=== PATIENT | female | born 1985 | race Caucasian/White ===

== ENCOUNTER 2017-12-01 07:34 | Emergency (ER) | payer BC ==
[~2017-12-01] VITALS: Ht 160 cm; Wt 75.0 kg
[2017-12-01 07:37] VITALS: BP 147/86; PULSE 118; RESP 18; TEMP 98.1; O2SAT 96
[2017-12-01] MEDS ORDERED: ONDANSETRON ODT 4 MG TAB PO ONE (08:00)
--- NOTE | 2017-12-01 08:03 | PD ---
HPI Chief Complaint: Cold / Flu Symptoms Time Seen by Provider: 07:51 Travel History International Travel<30 days: No Contact w/Intl Traveler<30days: No Traveled to known affect area: No History of Present Illness HPI 32 y/o female presents with cough and congestion and sinus pressure since Monday when she went to a wedding on Monday. She denies any specific sick contacts. 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 She is 16 weeks . She states she also started vomiting and has had multiple episodes of nonbloody emesis. She denies any abdominal pain, diarrhea, vaginal bleeding, fever or other concurrent complaints at this time. She states she feels worse when she moves around. Quality is nonproductive. Severity is multiple episodes. Duration is since Monday. PFSH Past Medical History Medical History: Denies Significant Hx Diminished Hearing: No Tetanus Vaccination: > 5 Years Influenza Vaccination: No ?: LMP: AUG 2017 Past Surgical History Other Surgery: Yes (BREAST AUGMENTATION) Social History Alcohol Use: No Tobacco Use: No Substance Use: No Allergies-Medications (Allergen,Severity, Reaction): Coded Allergies: Tetracyclines (Verified Allergy, Unknown, RASH, 12/01/17) sulfamethoxazole (Verified Allergy, Unknown, Rash, 12/01/17) trimethoprim (Verified Allergy, Unknown, Rash, 12/01/17) Reported Meds & Prescriptions Reported Meds & Active Scripts Active Macrobid (Nitrofurantoin Monohydrate Macrocrystals) 100 Mg Capsule 100 Mg PO BID 7 Days Zofran Odt (Ondansetron Odt) 4 Mg Tab 4 Mg SL Q8HR PRN Review of Systems Except as stated in HPI: all other systems reviewed are Neg Physical Exam Narrative GENERAL: 32-year-old female in no apparent distress SKIN: Focused skin assessment warm/dry. HEAD: Atraumatic. Normocephalic. EYES: Pupils equal and round. No scleral icterus. No injection or drainage. ENT: No nasal bleeding or discharge. Mucous membranes pink and moist. Posterior oropharynx without exudate or erythema, bilateral TMs clear NECK: Trachea midline. No meningeal signs CARDIOVASCULAR: Regular rate and rhythm. RESPIRATORY: No accessory muscle use. Clear to auscultation. Breath sounds equal bilaterally. GASTROINTESTINAL: Abdomen soft, non-tender, nondistended. MUSCULOSKELETAL: No obvious deformities. No clubbing. No cyanosis. No edema. NEUROLOGICAL: Awake and alert. No obvious cranial nerve deficits. Motor grossly within normal limits. Normal speech. PSYCHIATRIC: Appropriate mood and affect; insight and judgment normal. Data Data Last Documented VS Vital Signs Date Time Temp Pulse Resp B/P (MAP) Pulse Ox O2 Delivery O2 Flow Rate FiO2 12/01/17 09:08 97 20 98 Room Air 12/01/17 07:37 98.1 147/86 (106) Orders Orders Urinalysis - C+S If Indicated (12/01/17 07:54) Influenzae A/B Antigen (12/01/17 07:54) Ondansetron Odt (Zofran Odt) (12/01/17 08:00) Heart Tones (12/01/17 07:55) Urine Culture (12/01/17 08:05) Oral Rehydration (12/01/17 08:47) Nitrofurantoin Monohyd Macrocr (Macrobid (12/01/17 09:00) Ed Discharge Order (12/01/17 09:53) Labs Laboratory Tests Test 12/01/17 08:05 Urine Color YELLOW Urine Turbidity CLOUDY Urine pH 6.0 Urine Specific [place] 1.020 Urine Protein 100 mg/dL Urine Glucose (UA) NEG mg/dL Urine Ketones 40 mg/dL Urine Occult Blood NEG Urine Nitrite NEG Urine Bilirubin NEG Urine Urobilinogen 2.0 MG/DL Urine Leukocyte Esterase MOD Urine RBC 2 /hpf Urine WBC 13 /hpf Urine Squamous Epithelial Cells 26 /hpf Urine Bacteria MANY /hpf Urine Hyaline Casts 8 /lpf Urine Mucus FEW /lpf Microscopic Urinalysis Comment CULTURE INDICATED MDM Medical Decision Making Medical Screen Exam Complete: Yes Emergency Medical Condition: Yes Medical Record Reviewed: Yes (Past history confirmed) Interpretation(s) flu is negative ua with signs of infection heart tones normal Differential Diagnosis URI, gastroenteritis, doubt pneumonia Narrative Course Will check influenza, urinalysis and dose with Zofran and reevaluate. Heart rate before treatment while I was in room was 107. Patient agrees to plan, she will need to tolerate oral hydration and have heart rate continued to improve before discharge Urine shows signs of infection. Will give Macrobid and make sure he can tolerate oral hydration. No emesis here Patient denies any new complaints and states that they are feeling better. Patient happy with care, all questions answered. Patient knows that follow up is incumbent on them and to return to the emergency room immediately if new or worsening symptoms develop. Patient given strict return precautions, vitals reviewed and are normal, agrees to further workup as an outpatient. Diagnosis Primary Impression: Vomiting Qualified Codes: R11.2 - Nausea with vomiting, unspecified Additional Impressions: Upper respiratory infection Qualified Codes: J06.9 - Acute upper respiratory infection, unspecified UTI (urinary tract infection) Qualified Codes: N39.0 - Urinary tract infection, site not specified Qualified Codes: Z3A.16 - 16 weeks gestation of Patient Instructions: General Instructions Additional Instructions: return as needed, follow with an manager regional Monday, Zofran as needed, keep hydrated Med/Other Pt SpecificInfo: Prescription(s) given Scripts Nitrofurantoin Monohydrate Macrocrystals (Macrobid) 100 Mg Capsule 100 MG PO BID for Infection for 7 Days, #14 CAP 0 Refills Prov: Darline Lo MD 12/01/17 Ondansetron Odt (Zofran Odt) 4 Mg Tab 4 MG SL Q8HR Y for Nausea/Vomiting, #10 TAB 0 Refills Prov: Darline Lo MD 12/01/17 Disposition: 01 DISCHARGE HOME Condition: Stable Darline Lo MD Dec 01, 2017 08:03
[2017-12-01 08:34] LABS: BACTERIA, URINE MANY /hpf; BILIRUBIN, URINE NEG (NEG); BLOOD, URINE NEG (NEG); GLUCOSE,URINE NEG (NEG); HYALINE CAST, URINE 8 /lpf (RARE); KETONE, URINE 40 mg/dL (NEG); MUCUS URINE FEW /lpf (OCC); NITRITE,URINE NEG (NEG); SQUAMOUS EPITHELIAL CELL URINE 26 /hpf (0-5); URINE COLOR YELLOW (YELLW/STRAW); URINE LEUKOCYTE ESTERASE MOD (NEG)
[2017-12-01] MEDS ORDERED: NITROFURANTOIN MONOHYD MACROCR 100 MG CAP PO ONE (09:00)
[2017-12-01 09:08] VITALS: PULSE 97; RESP 20; O2SAT 98
[2017-12-01] MEDS ORDERED: ZOFR4TAB3 SL (09:25)
[2017-12-01] MEDS ORDERED: MACR100C2 PO (09:32)
== END 2017-12-01 10:01 | disposition home or self-care (01) ==
LOC: NEPE 07:34
DX: O21.9 Vomiting of pregnancy, unspecified (principal); O23.42 Unspecified infection of urinary tract in pregnancy, second trimester; O99.512 Diseases of the respiratory system complicating pregnancy, second trimester; J06.9 Acute upper respiratory infection, unspecified; Z3A.16 16 weeks gestation of pregnancy
CPT/HCPCS: 81001; 86403; 87086; 87804; 99283

== ENCOUNTER 2018-04-17 17:29 | Inpatient (IN) ==
[2018-04-17] MEDS ORDERED: fentaNYL Citrate Inj 100 MCG/2 ML Ampul IV.PUSH PRN ×2 (17:35)
[2018-04-17] MEDS ORDERED: Sodium Chlor 0.9% Inj 500 ML IV.SIG PRN (17:35)
[2018-04-17] MEDS ORDERED: Naloxone Inj 0.4 MG/ML Vial IV.PUSH PRN (17:35)
[2018-04-17] MEDS ORDERED: Oxytocin 30 Units/500ml Premix 30 UNITS/500 ML BAG IV.SIG ONE (17:35)
--- NOTE | 2018-04-17 17:39 | P.HPOB ---
History of Present Illness Primary Care Physician: No Primary Care Physician History of Present Illness: HPI: 32 year-old with JESSE of 05/09/18, therefore at 35 weeks + 6 days EGA. Admitted to L&D today for preeclampsia without severe features. Was seen in the office today by Dr. Mix was found to have elevated blood pressures of 140/92 and 150/96. She is admitted for induction of labor. She denies any contractions. Denies any + SROM of clear fluid. Denies any vaginal bleeding. Patient has felt movements. care: Seen by Dr. Perales. Patient has Gestational diabetes. GBS negative. Allergies: Tetracycline/Bactrim (hives) Meds: vitamins. Social history: No tobacco, alcohol or drug abuse. - Inpatient Certification I certify that the inpatient services were ordered in accordance with Medicare regulations governing the order. This includes certification that hospital inpatient services are reasonable and necessary and in the case of services not specified as inpatient-only under 42 CFR 419.22(n), that they are appropriately provided as inpatient services in accordance to with the 2-midnight benchmark under 43 CFR 412.3(e) Medications and Allergies Allergies Allergy/AdvReac Type Severity Reaction Status Date / Time sulfamethoxazole Allergy Unknown Rash Verified 04/12/18 14:05 Tetracyclines Allergy Unknown RASH Verified 04/12/18 14:05 trimethoprim Allergy Unknown Rash Verified 04/12/18 14:05 Exam Narrative: CERVICAL EXAM Per Nursing: Cervix: anterior Dilatation: 2 Effacement: 90 Station: -1 Presentation: cephalic Membranes: intact Caprini VTE Risk Assessment Caprini VTE Risk Assessment: No/Low Risk (score <= 1) Caprini Risk Assessment Model: Point Value = 1 Point Value = 2 Point Value = 3 Point Value = 5 Age 41-60 Minor surgery BMI > 25 kg/m2 Swollen legs Varicose veins or History of unexplained or recurrent spontaneous Oral contraceptives or hormone replacement Sepsis (< 1 month) Serious lung disease, including pneumonia (< 1 month) Abnormal pulmonary function Acute myocardial infarction Congestive heart failure (< 1 month) History of inflammatory bowel disease Medical patient at bed rest Age 61-74 Arthroscopic surgery Major open surgery (> 45 min) Laparoscopic surgery (> 45 min) Malignancy Confined to bed (> 72 hours) Immobilizing plaster cast Central venous access Age >= 75 History of VTE Family history of VTE Factor V Leiden Prothrombin [id number] Lupus anticoagulant Anticardiolipin antibodies Elevated serum homocysteine Heparin-induced thrombocytopenia Other congenital or acquired thrombophilia Stroke (< 1 month) Elective arthroplasty Hip, pelvis, or leg fracture Acute spinal cord injury (< 1 month) Prophylaxis Regimen: Total Risk Factor Score Risk Level Prophylaxis Regimen 0-1 Low Early ambulation 2 Moderate Order ONE of the following: *Sequential Compression Device (SCD) *Heparin 5000 units SQ BID 3-4 Higher Order ONE of the following medications: *Heparin 5000 units SQ TID *Enoxaparin/Lovenox 40 mg SQ daily (WT < 150 kg, CrCl > 30 mL/min) *Enoxaparin/Lovenox 30 mg SQ daily (WT < 150 kg, CrCl > 10-29 mL/min) *Enoxaparin/Lovenox 30 mg SQ BID (WT < 150 kg, CrCl > 30 mL/min) AND/OR *Sequential Compression Device (SCD) 5 or more Highest Order ONE of the following medications: *Heparin 5000 units SQ TID (Preferred with Epidurals) *Enoxaparin/Lovenox 40 mg SQ daily (WT < 150 kg, CrCl > 30 mL/min) *Enoxaparin/Lovenox 30 mg SQ daily (WT < 150 kg, CrCl > 10-29 mL/min) *Enoxaparin/Lovenox 30 mg SQ BID (WT < 150 kg, CrCl > 30 mL/min) AND *Sequential Compression Device (SCD) Assessment and Plan - Plan 32-year-old at 35 and 6 admitted to L&D due to preeclampsia without severe features. Admitted for induction of labor. Bishops Score: 10. Cytotec [place]/EFM -Continue to monitor vitals q4 -Breakfast in AM, clear liquids after Breakfast. -Accucheck in AM -Anticipate -Discussed with Dr. Perales.
[2018-04-17] MEDS ORDERED: Citric Acid/Sodium Citrate Liq 30 ML UDC PO SCH (17:45)
[2018-04-17] MEDS ORDERED: Sod Chloride 0.9% Inj 1,000 ML IV.CONT PRN (18:00)
[2018-04-17 18:29] LABS: Baso % (Auto) 0.3 % (0.0-2.0); Eos # (Auto) 0.1 th/mm3 (0.0-0.4); Eos % (Auto) 0.6 % (0.0-4.0); Hemoglobin 11.2 gm/dL (11.6-15.3); Lymph # (Auto) 2.2 th/mm3 (1.0-4.8); Mean Corpuscular HGB Conc 33.8 % (32.0-36.0); Mean Corpuscular Hemoglobin 28.6 pg (27.0-34.0); Mean Corpuscular Volume 84.4 fL (80.0-100.0); Mean Platelet Volume 7.8 fL (7.0-11.0); Mono % (Auto) 8.7 % (0.0-8.0); Neut # (Auto) 8.1 th/mm3 (1.8-7.7); Neut % (Auto) 71.4 % (16.0-70.0); Platelet Count 359 th/mm3 (150-450); Red Blood Count 3.91 mil/mm3 (4.00-5.30); Red Cell Distribution Width 13.3 % (11.6-17.2); White Blood Count 11.4 th/mm3 (4.0-11.0)
[2018-04-17 19:38] LABS: Bacteria,Urine Rare /hpf; Bilirubin,Urine Negative (Negative); Clarity,Urine Clear (Clear); Color,Urine Straw (Yellw/Straw); Glucose,Urine (UA) Negative (Negative); Leukocyte Esterase,Urine Negative (Negative); Mucus,Urine Few /lpf (Occasional); Nitrite,Urine Negative (Negative); Specific Gravity,Urine 1.005 (1.002-1.035); Squamous Epithelial Cell,Urine 1 /hpf (0-5)
[2018-04-17 19:42] LABS: Amphetamine Urine With Conf Neg (Neg); Benzodiazepine Urine With Conf Neg (Neg)
[2018-04-17] MEDS ORDERED: Oxytocin 30 Units/500ml Premix 30 UNITS/500 ML BAG IV.SIG PRN (21:44)
--- NOTE | 2018-04-18 08:21 | P.OBLABOR ---
Subjective Interval history: Did not sleep during night contractions getting painful Objective Vital Signs: Vital Signs - 8 hr 04/18/18 00:23 04/18/18 00:24 04/18/18 01:28 Temperature 98.0 F Pulse Rate 85 67 Respiratory Rate 16 16 Blood Pressure 135/82 124/60 04/18/18 02:30 04/18/18 03:37 04/18/18 04:45 Temperature 98.1 F 98.4 F Pulse Rate 69 80 63 Respiratory Rate 18 18 Blood Pressure 134/77 121/69 135/68 04/18/18 06:05 04/18/18 06:14 04/18/18 07:15 Temperature Pulse Rate 66 67 Respiratory Rate 18 18 Blood Pressure 135/78 119/81 04/18/18 07:40 Temperature 98.4 F Pulse Rate Respiratory Rate Blood Pressure Objective: 3/100%/0 arom scant clear fluid UCs wevery 2-3 and palpate moderate strip category one Patient Started Active Labor: No Medical Induction of Labor: Yes Artificial Rupture of Membrane: Yes Artificial ROM Date: 04/18/18 Artificial ROM Time: 08:20 Assessment and Plan - Plan 32-year-old at 35 and 6 admitted to L&D due to preeclampsia without severe features. Admitted for induction of labor. Bishops Score: 10. Cytotec [place]/EFM -Continue to monitor vitals q4 -Breakfast in AM, clear liquids after Breakfast. -Accucheck in AM -Anticipate -Discussed with Dr. Perales. 04/18/18 should progress to active labor and second stage today anticipate epidural prn (Blood pressures are good and no intervention needed)
[2018-04-18] MEDS ORDERED: fentaNYL 2MCG-Bupiv 0.125% Epi 150 ML EPIDURAL ONE (08:50)
[2018-04-18] MEDS ORDERED: Lidocaaine 1.5%/Epinephrine 1:200,000 PF Inj 5 ML Amp ONE (09:10)
[2018-04-18] MEDS ORDERED: Lidocaine PF 1% Inj 5 ML Vial ONE ×2 (09:11→09:20)
[2018-04-18] MEDS ORDERED: fentaNYL Citrate Inj 100 MCG/2 ML Ampul EPIDURAL ONE (10:17)
[2018-04-18] MEDS ORDERED: fentaNYL 2MCG-Bupiv 0.125% Epi 150 ML EPIDURAL PRN (10:17)
[2018-04-18] MEDS ORDERED: fentaNYL Citrate Inj 100 MCG/2 ML Ampul ONE (13:24)
[2018-04-18] MEDS ORDERED: Lidocaine PF 1.5% Inj 20 ML Ampule ONE (13:24)
[2018-04-18] MEDS ORDERED: Bisacodyl 10 MG Supp RECTAL PRN (16:00)
[2018-04-18] MEDS ORDERED: Diphtheria/Tetanus/Pertussis Vaccine Inj 0.5 ML Syringe IM ONE (16:00)
[2018-04-18] MEDS ORDERED: Measles/Mumps/Rubella Vaccine Inj 0.5 ML Vial SQ ONE (16:00)
[2018-04-18] MEDS ORDERED: Naloxone Inj 0.4 MG/ML Vial IV.PUSH PRN (16:00)
[2018-04-18] MEDS ORDERED: Oxytocin 30 Units/500ml Premix 30 UNITS/500 ML BAG IV.CONT PRN (16:00)
[2018-04-18] MEDS ORDERED: Benzocaine 20% Top Spray 60 ML Can TOPICAL PRN (16:00)
[2018-04-18] MEDS ORDERED: Witch Hazel 50%/Glyderin 12.5% 40 Pad Jar RECTAL PRN (16:00)
[2018-04-18] MEDS ORDERED: Zolpidem Tartrate 5 MG Tablet PO PRN (16:00)
--- NOTE | 2018-04-18 18:18 | P.OBDELI ---
Weeks Gestation: 36 Anesthesia: Epidural Episiotomy: none Vaginal Delivery: Normal Presentation: Occiput anterior Nuchal Cord: x1 Delayed Cord Clamping (45 sec): Yes Placenta: Spontaneous delivery, Intact, 3 vessel cord, Other (two lobes removed and identified) Laceration: 1 deg Repair: Chromic running Estimated blood loss (mL): 200 Infant: Female, Single Additional Information: 9 and 9 apgars 5 pound 6 ounces
[2018-04-18] MEDS: Acetaminophen 325 MG Tablet PO PRN (21:05)
[2018-04-18] MEDS: Senna/Docusate Sodium 8.6/50 MG Tablet PO SCH (21:05)
[2018-04-19] MEDS: Acetaminophen 325 MG Tablet PO PRN ×4 (05:53→21:27)
--- NOTE | 2018-04-19 08:06 | P.PNOB ---
Subjective Post day: 1 Interval history: no BROWNE , no BV, no CP Objective Vital Signs/I&O: Vital Signs 04/18/18 09:25 04/18/18 09:35 04/18/18 09:40 Temperature Pulse Rate 89 84 108 H Respiratory Rate 20 Blood Pressure 141/81 H 145/91 H 04/18/18 09:41 04/18/18 09:56 04/18/18 10:15 Temperature 98.9 F Pulse Rate 96 H 109 H 87 Respiratory Rate 20 Blood Pressure 144/76 H 135/70 126/70 04/18/18 10:20 04/18/18 10:25 04/18/18 10:35 Temperature Pulse Rate 89 92 H 100 H Respiratory Rate Blood Pressure 120/89 96/61 L 120/68 04/18/18 10:40 04/18/18 10:50 04/18/18 10:55 Temperature Pulse Rate 86 90 85 Respiratory Rate Blood Pressure 128/78 133/93 H 129/79 04/18/18 11:00 04/18/18 11:10 04/18/18 11:26 Temperature 99.0 F Pulse Rate 85 101 H Respiratory Rate 20 20 Blood Pressure 128/81 107/83 04/18/18 11:40 04/18/18 11:55 04/18/18 12:00 Temperature Pulse Rate 89 89 Respiratory Rate 20 Blood Pressure 127/92 H 115/67 04/18/18 12:26 04/18/18 12:55 04/18/18 13:30 Temperature 98.1 F Pulse Rate 96 H 121 H 104 H Respiratory Rate 20 20 Blood Pressure 115/69 145/87 H 148/98 H 04/18/18 13:40 04/18/18 14:00 04/18/18 14:12 Temperature Pulse Rate 109 H 109 H Respiratory Rate 20 Blood Pressure 132/90 97/77 L 04/18/18 14:28 04/18/18 14:50 04/18/18 15:30 Temperature 97.9 F Pulse Rate 109 H 114 H 124 H Respiratory Rate 20 20 Blood Pressure 121/68 117/65 137/85 04/18/18 16:00 04/18/18 16:05 04/18/18 16:31 Temperature Pulse Rate 107 H 99 H Respiratory Rate 18 Blood Pressure 135/76 138/77 04/18/18 17:01 04/18/18 17:05 04/18/18 17:17 Temperature Pulse Rate 85 93 H Respiratory Rate 18 18 Blood Pressure 128/77 137/85 04/18/18 17:43 04/18/18 17:50 04/18/18 18:35 Temperature 98.5 F Pulse Rate 98 H 98 H Respiratory Rate 18 Blood Pressure 132/83 141/76 H 04/19/18 08:00 Temperature 98.0 F Pulse Rate 70 Respiratory Rate 20 Blood Pressure 130/78 Result Diagrams: 04/17/18 18:00 Objective Remarks: GENERAL: Well-nourished, well-developed patient. CARDIOVASCULAR: Regular rate and rhythm without murmurs, gallops, or rubs. RESPIRATORY: Breath sounds equal bilaterally. No accessory muscle use. ABDOMEN/GI: Abdomen soft, non-tender. Fundus: Firm, non-tender at umbilicus. GENITOURINARY: Light to moderate bleeding. EXTREMITIES: No cyanosis or edema, non-tender, without signs of DVT. Medications and IVs: Active Medications Acetaminophen (Tylenol) 650 mg PO Q4H PRN PRN Reason: PAIN SCALE 1 TO 2 Last Admin: 04/19/18 05:53 Dose: 650 mg Al Hydroxide/Mg Hydroxide (Milk Of Magnesia Liq) 30 ml PO Q12H PRN PRN Reason: Mild Constipation Benzocaine (Americaine 20% Top [place]) 1 spray TOPICAL Q4H PRN PRN Reason: For Perineum Discomfort Last Admin: 04/18/18 21:04 Dose: 1 spray Bisacodyl (Dulcolax Supp) 10 mg RECTAL DAILY PRN PRN Reason: SEVERE CONSITIPATION Citric Acid/Sodium Citrate (Sodium Citrate/Citric Acid Liq) 30 ml PO [facility] Stop: 04/21/18 17:44 Ephedrine Sulfate (Ephedrine/Ns Syringe) 10 mg IV.PUSH UNSCH PRN PRN Reason: SEE LABEL COMMENTS Stop: 04/19/18 10:17 Fentanyl Citrate (Fentanyl Inj) 50 mcg IV.PUSH Q1H PRN PRN Reason: Pain Scale 3 - 5 Last Admin: 04/18/18 02:39 Dose: 50 mcg Fentanyl Citrate (Fentanyl Inj) 100 mcg IV.PUSH Q1H PRN PRN Reason: PAIN SCALE 6 TO 10 Last Admin: 04/18/18 06:39 Dose: 100 mcg Lactated Ringer's (Lr 1000 Ml Inj) 1,000 mls @ 125 mls/hr IV.CONT .Q8H DARIO Last Admin: 04/19/18 03:35 Dose: Not Given Lactated Ringer's (Lr 1000 Ml Inj) 1,000 mls @ 3,000 mls/hr IV.SIG UNSCH PRN PRN Reason: compromise or epidural Last Admin: 04/18/18 08:58 Dose: 3,000 mls/hr Sodium Chloride (Ns Inj) 500 mls @ 1,000 mls/hr IV.SIG UNSCH PRN PRN Reason: SEE LABEL COMMENTS Sodium Chloride (Ns Inj) 1,000 mls @ 100 mls/hr IV.CONT .Q10H PRN PRN Reason: SEE LABEL COMMENTS Oxytocin (Pitocin 30 Units/Ns 500 Ml Premix) 30 units in 500 mls @ 1 mls/hr IV.SIG TITRATE PRN; Protocol PRN Reason: For induction of labor Last Admin: 04/17/18 22:23 Dose: 1 milliunit/min, 1 mls/hr Fentanyl/Bupivacaine/Sodium Chlor (Fentanyl 2 Mcg-Bupiv 0.125% Epi) 150 mls @ 10 mls/hr EPIDURAL PRN PRN PRN Reason: for Labor Pain Oxytocin (Pitocin 30 Units/Ns 500 Ml Premix) 30 units in 500 mls @ 100 mls/hr IV.CONT UNSCH PRN PRN Reason: Heavy bleeding Ibuprofen (Motrin) 800 mg PO Q8H PRN PRN Reason: For Cramping Last Admin: 04/19/18 00:44 Dose: 800 mg Lactulose (Lactulose Liq) 30 ml PO DAILY PRN PRN Reason: SEVERE CONSITIPATION Lidocaine HCl (Xylocaine 1% Inj) 0.1 ml I-DERMAL PRN PRN PRN Reason: For IV start Stop: 04/20/18 17:34 Lidocaine HCl (Xylocaine 1% Inj) 10 ml INFILTRATN PRN PRN PRN Reason: For episiotomy repair Stop: 04/19/18 17:34 Mineral Oil (Muri-Lube Oil) 10 ml TOPICAL PRN PRN PRN Reason: PRN perineal massage Miscellaneous Information (Misc Information) 1 each OTHER UNSCH PRN PRN Reason: SEE LABEL COMMENTS Stop: 04/19/18 10:17 Miscellaneous Information (Misc Information) 1 each OTHER UNSCH PRN PRN Reason: SEE LABEL COMMENTS Stop: 04/19/18 10:17 Naloxone HCl (Narcan Inj) 0.1 mg IV.PUSH Q2M PRN PRN Reason: for opiate reversal Naloxone HCl (Narcan Inj) 0.1 mg IV.PUSH Q2M PRN PRN Reason: for opiate reversal Ondansetron HCl (Zofran Inj) 4 mg IV.PUSH UNSCH PRN PRN Reason: NAUSEA Last Admin: 04/18/18 12:50 Dose: 4 mg Ondansetron HCl (Zofran Odt) 4 mg PO Q6H PRN PRN Reason: NAUSEA OR VOMITING Senna/Docusate Sodium (Katherin-Colace) 1 tab PO BID [facility] Last Admin: 04/18/18 21:05 Dose: 1 tab Sennosides (Senokot) 17.2 mg PO Q12H PRN PRN Reason: Moderate Constipation Sodium Chloride (Ns Flush) 2 ml IV.FLUSH BID [facility] Last Admin: 04/18/18 21:05 Dose: 2 ml Sodium Chloride (Ns Flush) 2 ml IV.FLUSH PRN PRN PRN Reason: FLUSH AFTER USING IV ACCESS Sodium Chloride (Ns Flush) 2 ml IV.FLUSH BID [facility] Last Admin: 04/18/18 21:06 Dose: 2 ml Sodium Chloride (Ns Flush) 2 ml IV.FLUSH PRN PRN PRN Reason: FLUSH AFTER USING IV ACCESS [place] G/Glycerin (Tucks Pads) 1 applicatio RECTAL QID PRN PRN Reason: HEMORRHOIDS Last Admin: 04/18/18 21:04 Dose: 1 applicatio Zolpidem Tartrate (Ambien) 5 mg PO HS PRN PRN Reason: SLEEP Assessment and Plan - Diagnosis (1) Vaginal delivery Code(s): O80 - Encounter for full-term uncomplicated delivery Status: Acute - Plan 32-year-old at 35 and 6 admitted to L&D due to preeclampsia without severe features. Admitted for induction of labor. Bishops Score: 10. Cytotec [place]/EFM -Continue to monitor vitals q4 -Breakfast in AM, clear liquids after Breakfast. -Accucheck in AM -Anticipate -Discussed with Dr. Perales. 04/18/18 should progress to active labor and second stage today anticipate epidural prn (Blood pressures are good and no intervention needed) 04/19/18 s/p at 3:51 pm yesterday, bp normal, no complaints, pt desires d/c home today if baby cleared rto 2 wks Discharge Planning: routine - Attending Attestation pt seen by me
[2018-04-19] MEDS: Senna/Docusate Sodium 8.6/50 MG Tablet PO SCH ×2 (08:54→21:00)
[2018-04-20] MEDS: Acetaminophen 325 MG Tablet PO PRN ×2 (01:56→09:04)
[2018-04-20 08:25] VITALS: BP 124/81; PULSE 73; RESP 20; TEMP 97.9
--- NOTE | 2018-04-20 08:40 | P.PNOB ---
Subjective Post day: 2 Interval history: PPD#2; Stable on NORVASC, Doing well, no c/o. plan discharge today ,RTO in 1 -2 weeks Objective Vital Signs/I&O: Vital Signs 04/19/18 20:00 04/20/18 08:00 Temperature 98.1 F 97.9 F Pulse Rate 70 73 Respiratory Rate 18 20 Blood Pressure 135/83 124/81 Intake & Output 04/19/18 04/20/18 04/20/18 18:59 06:59 18:59 Intake Total 0 / 0 Balance 0 / 0 Intake: Intake (Blood Product) Amt 0 / 0 Rho(D) Immune Globulin Unit 0 / 0 [id number] Result Diagrams: 04/17/18 18:00 Objective Remarks: GENERAL: Well-nourished, well-developed patient. CARDIOVASCULAR: Regular rate and rhythm without murmurs, gallops, or rubs. RESPIRATORY: Breath sounds equal bilaterally. No accessory muscle use. ABDOMEN/GI: Abdomen soft, non-tender. Fundus: Firm, non-tender at umbilicus. GENITOURINARY: Light to moderate bleeding. EXTREMITIES: No cyanosis or edema, non-tender, without signs of DVT. Medications and IVs: Active Medications Acetaminophen (Tylenol) 650 mg PO Q4H PRN PRN Reason: PAIN SCALE 1 TO 2 Last Admin: 04/20/18 01:56 Dose: 650 mg Al Hydroxide/Mg Hydroxide (Milk Of Magnesia Liq) 30 ml PO Q12H PRN PRN Reason: Mild Constipation Benzocaine (Americaine 20% Top [place]) 1 spray TOPICAL Q4H PRN PRN Reason: For Perineum Discomfort Last Admin: 04/18/18 21:04 Dose: 1 spray Bisacodyl (Dulcolax Supp) 10 mg RECTAL DAILY PRN PRN Reason: SEVERE CONSITIPATION Citric Acid/Sodium Citrate (Sodium Citrate/Citric Acid Liq) 30 ml PO SLUNK [facility]INNER [facility] Stop: 04/21/18 17:44 Fentanyl Citrate (Fentanyl Inj) 50 mcg IV.PUSH Q1H PRN PRN Reason: Pain Scale 3 - 5 Last Admin: 04/18/18 02:39 Dose: 50 mcg Fentanyl Citrate (Fentanyl Inj) 100 mcg IV.PUSH Q1H PRN PRN Reason: PAIN SCALE 6 TO 10 Last Admin: 04/18/18 06:39 Dose: 100 mcg Sodium Chloride (Ns Inj) 500 mls @ 1,000 mls/hr IV.SIG UNSCH PRN PRN Reason: SEE LABEL COMMENTS Fentanyl/Bupivacaine/Sodium Chlor (Fentanyl 2 Mcg-Bupiv 0.125% Epi) 150 mls @ 10 mls/hr EPIDURAL PRN PRN PRN Reason: for Labor Pain Ibuprofen (Motrin) 800 mg PO Q8H PRN PRN Reason: For Cramping Last Admin: 04/20/18 01:56 Dose: 800 mg Lactulose (Lactulose Liq) 30 ml PO DAILY PRN PRN Reason: SEVERE CONSITIPATION Lidocaine HCl (Xylocaine 1% Inj) 0.1 ml I-DERMAL PRN PRN PRN Reason: For IV start Stop: 04/20/18 17:34 Mineral Oil (Muri-Lube Oil) 10 ml TOPICAL PRN PRN PRN Reason: PRN perineal massage Naloxone HCl (Narcan Inj) 0.1 mg IV.PUSH Q2M PRN PRN Reason: for opiate reversal Ondansetron HCl (Zofran Inj) 4 mg IV.PUSH UNSCH PRN PRN Reason: NAUSEA Last Admin: 04/18/18 12:50 Dose: 4 mg Ondansetron HCl (Zofran Odt) 4 mg PO Q6H PRN PRN Reason: NAUSEA OR VOMITING Senna/Docusate Sodium (Katherin-Colace) 1 tab PO BID [facility] Last Admin: 04/19/18 21:00 Dose: Not Given Sennosides (Senokot) 17.2 mg PO Q12H PRN PRN Reason: Moderate Constipation Sodium Chloride (Ns Flush) 2 ml IV.FLUSH PRN PRN PRN Reason: FLUSH AFTER USING IV ACCESS Sodium Chloride (Ns Flush) 2 ml IV.FLUSH BID [facility] Last Admin: 04/19/18 21:00 Dose: Not Given Sodium Chloride (Ns Flush) 2 ml IV.FLUSH PRN PRN PRN Reason: FLUSH AFTER USING IV ACCESS [place] G/Glycerin (Tucks Pads) 1 applicatio RECTAL QID PRN PRN Reason: HEMORRHOIDS Last Admin: 04/18/18 21:04 Dose: 1 applicatio Zolpidem Tartrate (Ambien) 5 mg PO HS PRN PRN Reason: SLEEP Assessment and Plan - Diagnosis (1) Vaginal delivery Code(s): O80 - Encounter for full-term uncomplicated delivery Status: Acute - Plan 32-year-old at 35 and 6 admitted to L&D due to preeclampsia without severe features. Admitted for induction of labor. Bishops Score: 10. Cytotec [place]/EFM -Continue to monitor vitals q4 -Breakfast in AM, clear liquids after Breakfast. -Accucheck in AM -Anticipate -Discussed with Dr. Perales. 04/18/18 should progress to active labor and second stage today anticipate epidural prn (Blood pressures are good and no intervention needed) 04/19/18 s/p at 3:51 pm yesterday, bp normal, no complaints, pt desires d/c home today if baby cleared rto 2 wks 04/20/18; PPD#2, Cleared for d/c home, will stay on [facility]ASC. rto [place] @2 weeks. Discharge Planning: routine
== END 2018-04-20 14:17 | disposition home or self-care (01) ==
LOC: H2E 17:29 → H1EA 04-18 18:18
PROVIDERS: ADMIT Obstetrics & Gynecology; ATTEND Obstetrics & Gynecology